=== PATIENT | male | born 1950 | race Caucasian/White ===

== ENCOUNTER 2017-07-17 04:21 | Inpatient (IN) | payer MEDICARE ==
[~2017-07-17] VITALS: Ht 182.9 cm; Wt 99.9 kg
[2017-07-17 05:31] LABS: BASOPHILS 0.1 % (0-2); EOSINOPHILS 0 % (0-7); HEMATOCRIT 39.2 % (42.0-54.0); HEMOGLOBIN 12.7 g/dL (13.5-17.5); IMMATURE GRANULOCYTES 0.1 % (0-5); LYMPHOCYTES 13.9 % (15-50); MCH 30.6 pg (26.0-34.0); MCHC 32.4 g/dL (31.0-37.0); MCV 94.5 fL (80.0-100.0); MEAN PLATELET VOLUME 11.4 fL (7.4-10.4); MONOCYTES 13.2 % (2-11); NEUTROPHILS 72.7 % (40-80); PLATELET COUNT 281 10x3/uL (130-400); RBC 4.15 10x6/uL (4.20-6.10); RDW 13.8 % (11.5-14.5); WBC 8.4 10x3/uL (4.8-10.8)
[2017-07-17 05:38] LABS: ALBUMIN 2.1 g/dL (3.4-5.0); ALKALINE PHOSPHATASE 127 U/L (46-116); ALT (SGPT) 38 U/L (10-68); CALC OSMOLALITY 290 mosm/kg (275-300); CALCIUM 8.4 mg/dL (8.5-10.1); CARBON DIOXIDE 31.9 mmol/L (21.0-32.0); CHLORIDE - SERUM 104 mmol/L (98-107); CREATININE - SERUM 0.7 mg/dL (0.6-1.3); GLUCOSE 149 mg/dL (74-106); POTASSIUM - SERUM 3.8 mmol/L (3.5-5.1); PROTEIN - SERUM 6.9 g/dL (6.4-8.2); SODIUM 144 mmol/L (136-145); UREA NITROGEN 16 mg/dL (7-18); eGFR NON AFRICAN AMERICAN > 90 mL/min (90-120)
[2017-07-17 05:47] LABS: CREATINE KINASE 69 UL (21-232); DIGOXIN 0.21 ng/mL (0.90-2.00); MAGNESIUM - SERUM 2.3 mg/dL (1.8-2.4); PRO BNP 1975 pg/mL (0-125); TROPONIN-I 0.048 ng/mL (0.000-0.060)
--- NOTE | 2017-07-17 06:55 | NUR ---
RECIEVED PATIENT FROM ER, PATIENT IS ALERT AND ORIENTED AT THIS TIME. PATIENT HAS A L HAND IV THAT IS SL AT THIS TIME. PATIENT IS ON 5L/MIN VIA NC WITH NAD NOTED AT THIS TIME. CHEST RISES AND FALLS EQUALLY. PATIENT DENIES ANY NEEDS OR PAIN AT THIS TIME. WILL CONT TO MONITOR PATIENT. CPOC
--- NOTE | 2017-07-17 07:34 | NUR ---
SPOKE WITH PATIENTS SON AND POA, CHACHO JONES. ANSWERED QUESTIONS. DENIES ANY FURTHER AT THIS TIME. CPOC
[2017-07-17] MEDS ORDERED: GABAPENTIN100 MG PO (07:56)
[2017-07-17] MEDS ORDERED: LIPITOR20 MG PO (07:59)
[2017-07-17 08:00] VITALS: BP 119/73
--- NOTE | 2017-07-17 09:03 | NUR ---
PATIENT RESTING IN BED, EYES CLOSED, BUT AROUSED WHEN SPOKEN TO. NO NEEDS AT THIS TIME. CALL LIGHT IN REACH. CPOC.
--- NOTE | 2017-07-17 09:30 | NUR ---
PATIENT SANCHEZ LEAKING, READJUSTED AND REINFLATED WITH 10CC OF SALINE. SANCHEZ IS NOT DRAINING. WILL CONT TO MONITOR PATIENT. CPOC
[2017-07-17] MEDS ORDERED: FUROSEMIDE20 MG PO (09:38)
[2017-07-17] MEDS ORDERED: ZESTRIL20 MG PO (09:38)
[2017-07-17] MEDS ORDERED: DEPAKOTE SPRIN125 MG PO (09:39)
[2017-07-17] MEDS ORDERED: KLOR-CON 1010 MEQ PO (09:40)
[2017-07-17] MEDS ORDERED: LANOXIN125 MCG PO (09:41)
[2017-07-17] MEDS ORDERED: COREG6.25 MG PO (09:41)
[2017-07-17] MEDS ORDERED: SEROQUEL25 MG PO (09:41)
[2017-07-17] MEDS ORDERED: CYMBALTA30 MG PO (09:42)
[2017-07-17] MEDS ORDERED: TYLENOL W/CODEI1 TAB PO (09:43)
[2017-07-17] MEDS ORDERED: ATIVAN1 MG PO (09:44)
[2017-07-17] MEDS ORDERED: FLUTICASONE PRO16 GM NASAL (09:45)
[2017-07-17] MEDS ORDERED: TRAZODONE HCL50 MG PO (09:45)
[2017-07-17] MEDS ORDERED: MELATONIN 3 MG1 TAB PO (09:47)
[2017-07-17] MEDS ORDERED: CALCIUM 600 +1 EAC3 PO (09:47)
[2017-07-17] MEDS ORDERED: FERROUS SULFAT325 MG PO (09:48)
[2017-07-17] MEDS ORDERED: COLACE100 MG PO (09:48)
--- NOTE | 2017-07-17 11:00 | NUR ---
MEDS RECONCILED BY DR SEBASTIAN AND GIVEN. PATIENT DENIES ANY NEEDS AT THIS TIME. CPOC
--- NOTE | 2017-07-17 11:27 | NUR ---
PATIENT SITTING UP IN BED. NO NEEDS OR REQUESTS AT THIS TIME. CPOC.
[2017-07-17 12:00] VITALS: BP 134/83
--- NOTE | 2017-07-17 12:18 | NUR ---
PATIENT EATING LUNCH AT THIS TIME. DENIES ANY NEEDS. SR ON MONITOR WITH A RATE OF 83. DIGOXIN GIVEN. WILL CONT TO MONITOR PATIENT. CPOC
--- NOTE | 2017-07-17 14:00 | NUR ---
PATIENT LABORED BREATHING, GURGLING BREATH SOUNDS. PATIENT PULLED UP IN BED, SUCTIONED. ENCOURAGE TO COUGH. LASIX GIVEN. NOTIFIED RESPIRATORY. O2 SAT 94% ON 5L/MIN. DR SEBASTIAN NOTIFIED AND ORDERED TO CONSULT DR MESA. WILL CONT TO MONITOR PATIENT. CPOC
--- NOTE | 2017-07-17 15:37 | NUR ---
Patient Name: LUKE JONES Admission Status: ER Accout number: [id number] Admission Date: 07-17-2017 : 1950 Admission Diagnosis:SHORTNESS OF BREATH Attending: DARIUSZ SEBASTIAN Current LOS: 1 Anticipated DC Date: Planned Disposition: Nursing Facility [facility] Cert Primary Insurance: MEDICARE A & B PLANNED EXTERNAL PROVIDER: [facility], [facility] B[facility] Discharge Planning Comments: * Is the patient Alert and Oriented? Yes 0 * How many steps to enter\exit or inside your home? NONE 0 * PCP DR. WHITE 0 * Pharmacy [facility] 0 * Preadmission Environment [facility] 0 * Facility Name [facility] 0 * ADLs Partial Dependent 0 * Partial ADLs (Assistance needed) Ambulation Bathing Medication Management 0 * Equipment Rolling Walker Walker 0 * Other Equipment ALL MEDICAL EQUIPMENT PROVIDED BY FACILITY 0 * List name and contact numbers for known caregivers / representatives who currently or will assist patient after discharge: CHACHO JONES, SON, / [phone] 0 * Community resources currently utilized None 0 * Please name any agencies selected above. NONE 0 * Additional services required to return to the preadmission environment? No 0 * Can the patient safely return to the preadmission environment? Yes 0 * Has this patient been hospitalized within the prior 30 days at any hospital? No 0 CM MET WITH PT IN ROOM TO DISCUSS DISCHARGE PLANNING AND NEEDS. PT REPORTS LIVING AT [facility] FOR THE PAST TWO YEARS. PT REPORTS FEELING SAFE AND WOULD RECOMMEND THE FACILITY TO OTHERS. PT HAS ROLLING WALKER AND WHEELCHAIR AT THE RESIDENTIAL; PT DENIES DISCHARGE NEEDS, REPORTS HE WILL BE RETURNING TO [facility] AT DISCHARGE, STATES HE IS ABLE TO RIDE IN THE VAN FOR TRANSPORTATION. UPDATE FAXED TO [facility] AT [phone]. ATTENTION JUAN ANTONIO LOPEZ. FOR DISCHARGE, FAX DISCHARGE INFORMATION TO [facility] AT [phone]; NURSE REPORT TO BE CALLED TO [facility] AT [phone]. [facility] TO ARRANGE VAN TRANSPORTATION. Ice Handler: Ochoa Wayne
[2017-07-17 15:39] VITALS: BP 134/78
[2017-07-17 15:42] VITALS: BMI 31.0
--- NOTE | 2017-07-17 16:30 | NUR ---
PATIENT IS RESTING, BREATHING BETTER THAT BEFORE, NOT GURGLING ANYMORE. O2 SAT 95%. PATIENT STATES HE IS FEELING BETTER. WILL CONT TO MONITOR. CPOC
--- NOTE | 2017-07-17 17:18 | NUR ---
SCDS ON AND TOLERATING
--- NOTE | 2017-07-17 19:44 | NUR ---
PT FREQUENTLY CALLS OUT. DISRUPTING OTHER PATIENTS. WANTS MEDICATIONS AT THIS TIME. EXPLAINED TO PT THAT I WILL GIVE THEM TO HIM EARLY I CAN. THIS DID NOT CONSOLE HIM.
--- NOTE | 2017-07-17 19:50 | NUR ---
RN NOTE: PT NOTED TO BE CALLING OUT INTO THE [facility] FOR HIS 2000 MEDS BECAUSE HE IS DEMANDING THAT THEY BE GIVEN DIRECTLY AT 1999. HE IS NOTED TO BE CONFUSED AND ANXIOUS. HE IS WORRIED ABOUT MISSING HIS MEDS. I REASSURED PATIENT THAT JAMILA THE BREADING MACHINE TENDER IS CURRENTLY PULLING HIS MEDICATIONS FOR HIM AND WILL BE IN SHORTLY. PT WAS ABLE TO BE REDIRECTED ONLY FOR A SHORT TIME BEFORE BEGINNING TO CALL OUT INTO THE [facility] AGAIN. THIS IS PT'S BASELINE. HE CAME FROM [facility]. PT IS HAS CHF, IS CURRENTLY ON 92% ON 5LNC. 20G SALINE LOC TO LEFT HAND. WILL CONT TO MONITOR.
[2017-07-17 22:54] VITALS: BP 113/45
[2017-07-18 04:27] VITALS: BP 120/45
[2017-07-18 05:49] LABS: BASOPHILS 0 % (0-2); EOSINOPHILS 0 % (0-7); HEMATOCRIT 38.3 % (42.0-54.0); HEMOGLOBIN 12.2 g/dL (13.5-17.5); IMMATURE GRANULOCYTES 0.2 % (0-5); LYMPHOCYTES 12.8 % (15-50); MCHC 31.9 g/dL (31.0-37.0); MCV 94.1 fL (80.0-100.0); MONOCYTES 2.8 % (2-11); NEUTROPHILS 84.2 % (40-80); PLATELET COUNT 304 10x3/uL (130-400); RBC 4.07 10x6/uL (4.20-6.10); RDW 13.7 % (11.5-14.5); WBC 6.4 10x3/uL (4.8-10.8)
[2017-07-18 06:15] LABS: ALBUMIN 1.7 g/dL (3.4-5.0); ALKALINE PHOSPHATASE 118 U/L (46-116); ALT (SGPT) 41 U/L (10-68); CALC OSMOLALITY 293 mosm/kg (275-300); CALCIUM 8.7 mg/dL (8.5-10.1); CARBON DIOXIDE 32.5 mmol/L (21.0-32.0); CHLORIDE - SERUM 103 mmol/L (98-107); CHOL - HDL RATIO 4.5 ratio (2.3-4.9); CHOLESTEROL, TOTAL 98 mg/dL (0-200); CREATININE - SERUM 0.8 mg/dL (0.6-1.3); GLUCOSE 184 mg/dL (74-106); HDL CHOLESTEROL 22 mg/dL (32-96); LDL CHOLESTEROL 62 mg/dL (0-100); LDL-HDL RATIO 2.8 ratio (1.5-3.5); MAGNESIUM - SERUM 2.3 mg/dL (1.8-2.4); PHOSPHOROUS 3.8 mg/dL (2.5-4.9); POTASSIUM - SERUM 3.9 mmol/L (3.5-5.1); PRO BNP 762 pg/mL (0-125); PROTEIN - SERUM 6.5 g/dL (6.4-8.2); SODIUM 143 mmol/L (136-145); THYROID STIMULATING HORMONE 0.02 uIU/mL (0.36-3.74); TRIGLYCERIDE 74 mg/dL (30-200); eGFR NON AFRICAN AMERICAN > 90 mL/min (90-120)
[2017-07-18 06:23] LABS: UREA NITROGEN 24 mg/dL (7-18)
--- NOTE | 2017-07-18 07:45 | NUR ---
INTRODUCED MYSELF TO PT PRIMARY RN FOR TODAYS SHIFT. PT A&O SITTING UP IN BED RESTING QUIETLY. SHIFT ASSESSMENT COMPLETED. PT HAS FREQUENT VERY PRODUCTIVE COUGH AND IS COUGHING THICK YELLOW SPUTUM UP. RR NONLABORED ON RA. CRACKLES NOTED THROUGHOUT ALL LOBES. S1S2 NOTED RRR TELEMETRY RUNNING SR PER [email or web address]. PT STATES HE SLEPT PRETTY WELL AND DENIES ANY CURRENT PAIN OR NEEDS. CL IN REACH, BED IN LOWEST, SIDE RAILS X2. WILL CPOC.
[2017-07-18 08:32] VITALS: BP 118/75
--- NOTE | 2017-07-18 12:06 | NUR ---
ASSISTED PT UP IN BED AND PLACED L.ARM ON PILLOW TO HELP WITH SWELLING AND TO HELP PT EAT SINCE HIS L.ARM IS CONTRACTED AND FLACCID. PT VOICED THANKS. PT DENIES ANY FURTHER NEEDS AT THIS TIME. CL IN REACH, BED IN LOWEST, SIDE RAILS X2. WILL CPOC.
[2017-07-18 12:12] VITALS: BP 97/49
--- NOTE | 2017-07-18 12:12 | CN ---
PATIENT NAME:LUKE JONES MEDICAL RECORD: [id number] : 50 LOCATION:D. D.2108 ADMIT DATE: 07/17/17 ACCOUNT: [id number] CONSULTING PHYSICIAN: SONIA MESA MD REFERRING PHYSICIAN: SAUD CAM MD DATE OF CONSULTATION: 07/17/2017 CONSULT REQUESTING PHYSICIAN: Saud Cam MD REASON FOR CONSULTATION: Acute exacerbation of COPD, pneumonia, pulmonary edema. HISTORY OF PRESENT ILLNESS: Mr. Jones is a 67-year-old gentleman who is still smoking half pack per day. According to the patient, he is sick for the last few days, he is coughing and the cough spasmodic in nature. He also has swelling of the lower extremities. He has shortness of breath with mild exertion. The patient was brought in from the care home to the ER and found out his proBNP is 1975. REVIEW OF SYSTEMS: Mainly in the history of present illness. PAST MEDICAL HISTORY: 1. CVA with left-sided weakness. 2. Congestive heart failure. 3. Schizophrenia. 4. COPD. 5. Tobacco dependence syndrome. 6. Depression. PAST SURGICAL HISTORY: 1. Cholecystectomy. 2. Back surgery. 3. Neck fusion surgery. 4. Gastric bypass surgery. ALLERGIES: There are no known drug allergies. MEDICATIONS: VISup was reviewed. PERSONAL AND SOCIAL HISTORY: The patient still continue half pack per day. He is a nondrinker. FAMILY HISTORY: Noncontributory. PHYSICAL EXAMINATION: GENERAL: Now, the patient is lying comfortably in bed. He is not in acute distress. The patient has spasmodic cough. VITAL SIGNS: The blood pressure is 119/73, pulse is 73, respirations 19, temperature 98.6, SpO2 is 95% on 4 liters nasal cannula. HEENT: Conjunctivae is pink, sclerae nonicteric. NECK: Supple, no JVD. CHEST: The chest excursion is minimal on both bibasilar crackles. Wheeze on forceful expiration. HEART: Rhythm regular, normal sound, no murmur. ABDOMEN: Soft, bowel sounds present. No hepatosplenomegaly. CONSULT REPORT [id number] LUKE JONES RECTAL: Deferred. EXTREMITIES: No cyanosis, no clubbing. There are 2+ pedal edema. SKIN: Warm, normal turgor. CENTRAL NERVOUS SYSTEM: The patient is awake and alert. There is weakness on the left side. IMAGING: Chest radiograph: There is increased interstitial markings. There are bibasilar infiltrates. LABORATORY DATA: CBC: The WBC is 8.4, hemoglobin 12.7, hematocrit 39.2, and the platelet count is 281. Chemistry: Sodium 144, potassium 3.8, BUN is 16, creatinine 0.7. The proBNP is 1975. Albumin is 2.1. ABG on admission, the pH is 7.40, pCO2 is 52.8, pO2 is 85, the bicarb is 32.7. IMPRESSION: 1. Acute exacerbation of chronic obstructive pulmonary disease. 2. Possible pneumonia, bilateral lower lobe, consider community-acquired pneumonia. 3. Acute cough with acute congestive heart failure flareup. 4. Pulmonary edema. 5. Tobacco dependence syndrome. 6. Status post cerebrovascular accident. RECOMMENDATION: 1. Start him on Levaquin IV. 2. Lasix IV. 3. Brovana and budesonide nebulizer. 4. Methylprednisolone IV. 5. Albuterol and ipratropium nebulizer q.4 hourly. 6. Mucinex DM, [place]. Follow up labs and chest radiograph. Dr. Cam, thank you for involving me in the care of Mr. Jones. TRANSINT:[id number] Voice Confirmation ID: [id number] DOCUMENT ID: [id number] SONIA MESA MD at 1212 CC: [id number] DICTATION DATE: 07/17/17 1516 CREAM SEPARATOR OPERATOR: 07/17/17 1540 ADM IN [place] [id number] [place] [address]
[2017-07-18 13:10] VITALS: Ht 182.9 cm; Wt 99.9 kg
[2017-07-18 15:33] VITALS: BP 91/50
--- NOTE | 2017-07-18 15:45 | NUR ---
PROVIDED PT WITH SCHEDULED MEDICATIONS. REPOSITIONED PTS SCDS BILAT AND NO SKIN BREAKDOWN OR ISSUES NOTED. PT C/O BACK PAIN AND NORMALLY TAKES TYLENOL #3 PAGED TO INQUIRE ABOUT RESTARTING IT. PTS SANCHEZ DRAINING TO GRAVITY OFF R.SIDE OF BED CONCENTRATED ELIJAH COLORED URINE, STAT LOCK SECURED TO R.INNER THIGH. PT DENIES ANY CURRENT PAIN OR FURTHER NEEDS AT THIS TIME. CL IN REACH, BED IN LOWEST, SIDE RAILS X2. WILL CPOC.
--- NOTE | 2017-07-18 17:43 | NUR ---
SPOKE WITH AND INCREASED PTS ATIVAN TO TID AND GOT HIS HOME DOSE OF TYLENOL #3 ORDERED FOR BACK PAIN. PT VOICED THANKS AND DENIES ANY FURTHER NEEDS AT THIS TIME.
--- NOTE | 2017-07-18 19:40 | NUR ---
PT IN BED WITH EYES OPEN WATCHING TV. PT CONFUSED FREQUENTLY USING CALL LIGHT TO ASK FOR 2100 MEDICATIONS AND TOLD MEDICATIONS WOULD BE BROUGHT SOON POSSIBLE EACH TIME. NO OTHER CONCERNS NOTED. CALL LIGHT IN REACH. WILL CONTINUE TO OBSERVE.
[2017-07-18 21:14] VITALS: BP 100/49
[2017-07-18 23:29] VITALS: BP 119/57
--- NOTE | 2017-07-19 03:39 | NUR ---
PT IN BED WITH EYES CLOSED AND CHEST RISING. EASILY AROUSED TO VERBAL STIMULI. NO CONCERNS NOTED AT THIS TIME. CALL LIGHT IN REACH. WILL CONTINUE TO OBSERVE.
[2017-07-19 04:04] VITALS: BP 108/71
[2017-07-19 06:41] LABS: BASOPHILS 0.1 % (0-2); EOSINOPHILS 0 % (0-7); HEMOGLOBIN 12.3 g/dL (13.5-17.5); IMMATURE GRANULOCYTES 0.3 % (0-5); LYMPHOCYTES 11.4 % (15-50); MCH 29.9 pg (26.0-34.0); MCHC 32.4 g/dL (31.0-37.0); MCV 92.5 fL (80.0-100.0); MEAN PLATELET VOLUME 11.1 fL (7.4-10.4); MONOCYTES 5.4 % (2-11); NEUTROPHILS 82.8 % (40-80); PLATELET COUNT 352 10x3/uL (130-400); RBC 4.11 10x6/uL (4.20-6.10); RDW 13.7 % (11.5-14.5)
[2017-07-19 06:44] LABS: CALC OSMOLALITY 295 mosm/kg (275-300); CALCIUM 8.5 mg/dL (8.5-10.1); CARBON DIOXIDE 32.3 mmol/L (21.0-32.0); CHLORIDE - SERUM 102 mmol/L (98-107); GLUCOSE 214 mg/dL (74-106); SODIUM 141 mmol/L (136-145); UREA NITROGEN 37 mg/dL (7-18); eGFR NON AFRICAN AMERICAN 79 mL/min (90-120)
[2017-07-19 06:51] LABS: WBC 9.8 10x3/uL (4.8-10.8)
--- NOTE | 2017-07-19 08:44 | NUR ---
PT CONTINUOUSLY HOLLERS OUT, "NURSE" "HELP ME HELP ME" UPON ASKING PT HIS NEEDS HE STATES "OH I JUST NEED MY MEDICATIONS, AM I GOING TO " PT IS OFTEN VERY CONCERNED ABOUT GETTING HIS MEDS AND WATCHES PEOPLE WALK BY HIS ROOM AND ALWAYS YELLS "CAN YOU HELP ME" HOWEVER PT JUST NEEDS REASSURANCE AND ATTENTION. PROVIDED PT WITH HIS PRN PAIN MED FOR HIS BACK ALONG WITH HIS ANTI ANXIETY MED AND TALKED WITH HIM REASSURING HIM HE IS DOING WELL AND SHOULD BE GETTING OUT SOON AND BACK TO HIS [facility]. PT VERBALIZED UNDERSTANDING AND VOICED THANKS. SANCHEZ DRAINING TO GRAVITY OFF R.SIDE OF BED ELIJAH CONCENTRATED IN COLOR. STAT LOCK SECURED TO R.INNER THIGH. PT WEARING NC @4L AND RR NONLABORED HOWEVER PT HAS A CONSTANT FREQUENT COUGH THAT SOUNDS SO WET AND HE IS OFTEN SPITTING OUT YELLOW THICK SPUTUM. PT DENIES ANY FURTHER NEEDS AT THIS TIME AND JUST NEEDS FREQUENT CUING AND REMINDERS THAT EVERYTHING IS ALRIGHT. CL IN REACH, BED IN LOWEST, SIDE RAILS X2 AND BUILT IN BED ALARM ON. WILL CPOC.
[2017-07-19 08:55] VITALS: BP 121/72
--- NOTE | 2017-07-19 11:00 | NUR ---
TALKED WITH PT ABOUT HOPEFULLY BEING DISCHARGED TOMORROW AND PT ANXIOUSLY STATES "SO IM NOT GOING TO " TALKED WITH PT AND LET HIM KNOW HE IS DOING WELL AND IS STABLE AND TRIED TO HELP HIM REMAIN CALM BUT PT CONSTANTLY NEEDS ATTENTION AND REASSURANCE THAT ALL IS WELL. PT INCONTINENT OF BM, COMPLETE BED CHANGE PROVIDED AND PT NOW RESTING QUIETLY IN BED. NO FURTHER NEEDS AT THIS TIME. WILL CPOC.
[2017-07-19 12:05] VITALS: BP 121/74
--- NOTE | 2017-07-19 12:14 | NUR ---
REPOSITIONED PT UP IN BED FOR COMFORT AND TO EAT LUNCH. PT CONTINUES TO ASK THE SAME QUESTIONS OVER AND OVER AND I KEEP REMINDING HIM. HE DENIES ANY CURRENT PAIN OR NEEDS AT THIS TIME. WILL CPOC.
--- NOTE | 2017-07-19 14:04 | NUR ---
PT HOLLERED OUT "IM BLEEDING IM DYING" UPON ENTERING ROOM PTS L.HAND PIV IS LEAKING, D/C WITH CATH TIP FULLY INTACT. 22 GUAGE STARTED X1 STICK TO R.FA. CALMED PT DOWN. WILL CPOC.
[2017-07-19 15:49] VITALS: BP 120/71
--- NOTE | 2017-07-19 16:59 | NUR ---
PT HOLLERING OUT "BETTY NURSEBETTY" UPON ENTERING PT ASKING WHEN CAN I HAVE MY NIGHTLY MEDICATIONS. DISCUSSED WITH PT AND HE STATES "OH OKAY I REMEMBER SO AROUND 8PM OR 9PM" I VERIFIED AND PT UNDERSTANDS. WILL CPOC.
--- NOTE | 2017-07-19 19:26 | NUR ---
PT RESTING IN BED. ASKS FOR HIS MEDS AT 1999. PT ON 3L OF O2 NC. BED LOW AND CALL LIGHT IN REACH. WILL CPOC
--- NOTE | 2017-07-19 20:14 | NUR ---
NIGHT TIME MEDS GIVEN AND PT EXPRESSES GRADITUDE. PT DENIES ANY OTHER NEEDS. NO S/S OF DISTRESS. LEFT ARM FLACCID AND CONTRACTED. PT BED LOW AND CALL LIGHT INREACH. WILL CPOC
[2017-07-19 21:38] VITALS: BP 124/61
[2017-07-20 01:30] VITALS: BP 114/66
--- NOTE | 2017-07-20 03:05 | NUR ---
PUT A NEW DRSG ON PT RIGHT FOREARM IV. DRSG NOW CDI. IV PATENT. PT DENIES ANY NEEDS. NO S/S OF DISTRESS. WILL CPOC
[2017-07-20 04:53] VITALS: BP 117/73
[2017-07-20 06:19] LABS: BASOPHILS 0.1 % (0-2); EOSINOPHILS 0 % (0-7); HEMATOCRIT 38.6 % (42.0-54.0); HEMOGLOBIN 12.1 g/dL (13.5-17.5); IMMATURE GRANULOCYTES 0.5 % (0-5); MCH 29.5 pg (26.0-34.0); MCHC 31.3 g/dL (31.0-37.0); MCV 94.1 fL (80.0-100.0); MEAN PLATELET VOLUME 10.9 fL (7.4-10.4); MONOCYTES 5.8 % (2-11); NEUTROPHILS 81.6 % (40-80); PLATELET COUNT 316 10x3/uL (130-400); RDW 13.7 % (11.5-14.5); WBC 8.1 10x3/uL (4.8-10.8)
[2017-07-20 06:39] LABS: CALC OSMOLALITY 297 mosm/kg (275-300); CALCIUM 8.1 mg/dL (8.5-10.1); CHLORIDE - SERUM 103 mmol/L (98-107); CREATININE - SERUM 0.9 mg/dL (0.6-1.3); GLUCOSE 215 mg/dL (74-106); POTASSIUM - SERUM 4.5 mmol/L (3.5-5.1); SODIUM 142 mmol/L (136-145); UREA NITROGEN 37 mg/dL (7-18); eGFR NON AFRICAN AMERICAN 89 mL/min (90-120)
[2017-07-20] MEDS ORDERED: IPRAT-ALBUT 0.5-3 ML INH (07:59)
[2017-07-20] MEDS ORDERED: BROVANA15 MCG/2 M INH (07:59)
[2017-07-20] MEDS ORDERED: FLORAJEN3 CAPS460 MG PO (08:01)
[2017-07-20] MEDS ORDERED: PULMICORT0.5 MG/21 UPD (08:01)
--- NOTE | 2017-07-20 08:17 | NUR ---
AM ROUNDS COMPLETED. SHIFT ASSESSMENT DONE. NO CHANGES NOTED FROM YESTERDAY. PT SITTING UP IN BED EATING BREAKFAST. PT REQUESTED PRN PAIN MEDICATION AND WAS PROVIDED WITH IT ALONG WITH ALL MORNING MEDICATIONS. PT DENIED THE NITRO BID OINTMENT AND STATED HE DIDNT NEED IT. PT SHOULD BE DISCHARGING BACK TO HIS [facility] TODAY. DISCUSSED THIS WITH HIM AND HE IS EXCITED AND ANXIOUS TO GET TO GO. PT DENIES ANY FURTHER NEEDS AT THIS TIME, CL IN REACH, BED IN LOWEST, SIDE RAILS X2 AND BUILT IN BED ALARM ON. WILL CPOC.
[2017-07-20 08:26] VITALS: BP 119/68
--- NOTE | 2017-07-20 09:01 | NUR ---
ORDER RECEIVED FOR DISCHARGE BACK TO [facility]. CALLED AND SPOKE WITH [facility]. TRANSPORT HAS BEEN SET UP FOR 0945 THIS MORNING. THE NURSE IS TO CALL REPORT TO THE A [facility] NURSE AT [phone] TO GIVE REPORT. PATIENT WILL RETURN TO A [facility] BED. EXPLAINED DISCHARGE AND OFFSET PROOF PRESS OPERATOR TIME TO NURSE (SHANNAN), AIDE (YOU), AND THE PATIENT.
--- NOTE | 2017-07-20 09:29 | NUR ---
D/C PTS R.FA PIV WITH CATH TIP FULLY INTACT. D/C PTS SANCHEZ CATHETER WITH TIP FULLY INTACT. WILL GET PT DRESSED AND COLLECT BELONGINGS AND HAVE HIM READY FOR [facility] P/U BY 945 THEY STATED THEY WILL BE HERE. DISCHARGE PAPERS AND TEACHING PROVIDED. PT DENIES ANY QUESTIONS OR CONCERNS. WILL CPOC.
--- NOTE | 2017-07-20 09:41 | NUR ---
CALLED REPORT TO JENNIFER KING AT [facility] AND PT IS NOW JUST WAITING ON TRANSPORTATION. NO FURTHER NEEDS.
--- NOTE | 2017-07-20 10:55 | NUR ---
[facility] HERE NOW FOR PT. PT LEAVING.
== END 2017-07-20 10:56 | DRG 291 ==
LOC: D.ER 04:21 → D.M2 06:32
PROVIDERS: Family Medicine; Internal Medicine Pulmonary Disease; ADMIT Family Medicine
PROC: 0T9B70Z Drainage of Bladder with Drainage Device, Via Natural or Artificial Opening (ICD-10-PCS; principal; 2017-07-17)
DX: I11.0 Hypertensive heart disease with heart failure (principal); J96.22 Acute and chronic respiratory failure with hypercapnia; J96.21 Acute and chronic respiratory failure with hypoxia; J18.9 Pneumonia, unspecified organism; I69.954 Hemiplegia and hemiparesis following unspecified cerebrovascular disease affecting left non-dominant side; J44.0 Chronic obstructive pulmonary disease with (acute) lower respiratory infection; J44.1 Chronic obstructive pulmonary disease with (acute) exacerbation; F20.9 Schizophrenia, unspecified; E78.5 Hyperlipidemia, unspecified; K59.09 Other constipation; F32.9 Major depressive disorder, single episode, unspecified; J30.9 Allergic rhinitis, unspecified; I50.33 Acute on chronic diastolic (congestive) heart failure; Z72.0 Tobacco use